=== PATIENT | male | born 1940 | race Asian ===

== ENCOUNTER 2021-08-11 11:34 | Emergency (ER) | payer MEDICARE, OTHER ==
[2021-08-11 11:45] VITALS: TEMP 98.2; BMI 25.8
[2021-08-11 13:37] LABS: BASO % 1.1 % (0-2.0); EOS % 3.4 % (0-4.5); HEMATOCRIT 44.7 % (35.4-49); HEMOGLOBIN 15.1 GM/dL (11.7-16.9); LYMPH % 23.9 % (8-40); MCH 29.7 pg (25.7-33.7); MCHC 33.8 g/dl (32.0-35.9); MEAN CELL VOLUME 87.9 fl (80-96); MEAN PLT VOLUME 7.9 fl (7.5-11.1); MONO % 9.1 % (3.8-10.2); NEUT % 62.5 % (42.8-82.8); PLATELET COUNT 224 10^3/uL (134-434); RBC 5.09 M/mm3 (4.00-5.60); RDW 14.4 % (11.9-15.9); WHITE BLOOD COUNT 5.8 K/mm3 (4.0-10.0)
[2021-08-11 14:03] LABS: CALCIUM 9.4 mg/dL (8.5-10.1)
[2021-08-11 14:04] LABS: ALBUMIN 3.7 g/dl (3.4-5.0); BLOOD UREA NITROGEN 14.6 mg/dL (7-18)
[2021-08-11 14:07] LABS: CREATININE 1.3 mg/dL (0.55-1.3)
[2021-08-11 14:09] LABS: TOT PROT 7.7 g/dl (6.4-8.2)
[2021-08-11 14:13] LABS: BILIRUBIN,TOTAL 0.4 mg/dL (0.2-1)
[2021-08-11 14:41] VITALS: BP 157/74; PULSE 65
== END 2021-08-11 14:39 | disposition home or self-care (01) ==
LOC: JER 11:34
DX: R79.89 Other specified abnormal findings of blood chemistry (principal)
CPT/HCPCS: 36415; 80053; 85025; 93005; 93010; 99284-25

== ENCOUNTER 2022-07-04 17:18 | Emergency (ER) | payer MEDICARE, OTHER ==
[2022-07-04] MEDS ORDERED: SODIUM CHLORIDE 0.9% 500 ML INFUS.BAG IV ONE (17:56)
[2022-07-04 18:17] VITALS: BP 149/74; PULSE 92; RESP 18; TEMP 98; BMI 26.6
[2022-07-04 19:58] LABS: HEMATOCRIT 44.2 % (35.4-49); HEMOGLOBIN 14.6 GM/dL (11.7-16.9); MCH 29.5 pg (25.7-33.7); MCHC 33.1 g/dl (32.0-35.9); MEAN CELL VOLUME 89.3 fl (80-96); MEAN PLT VOLUME 9.5 fl (7.5-11.1); PLATELET COUNT 161 10^3/uL (134-434); RBC 4.95 M/mm3 (4.00-5.60); RDW 13.8 % (11.9-15.9)
[2022-07-04 20:05] LABS: INR 0.97 (0.83-1.09); PROTHROMBIN TIME (PATIENT) 11.1 SEC (9.7-13.0)
[2022-07-04 20:08] LABS: ACTIVATED PTT 18.6 SECONDS (25.2-36.5)
[2022-07-04 20:12] LABS: ALBUMIN 3.8 g/dl (3.4-5.0); BLOOD UREA NITROGEN 18.4 mg/dL (7-18); WHITE BLOOD COUNT 10.4 K/mm3 (4.0-10.0)
[2022-07-04 20:15] LABS: CREATININE 1.5 mg/dL (0.55-1.3)
[2022-07-04 20:17] LABS: BILIRUBIN,TOTAL 0.4 mg/dL (0.2-1)
[2022-07-04 22:09] LABS: ANISOCYTOSIS 1+; MACROCYTOSIS 0; PLATELET ESTIMATE NORMAL
[2022-07-04 22:41] LABS: CALCIUM 8.3 mg/dL (8.5-10.1)
[2022-07-04 22:42] LABS: BLOOD UREA NITROGEN 16.9 mg/dL (7-18)
[2022-07-04 22:45] LABS: CREATININE 1.4 mg/dL (0.55-1.3)
== END 2022-07-05 00:20 | disposition home or self-care (01) ==
LOC: JER 17:18
DX: R42 Dizziness and giddiness (principal); W19.XXXA Unspecified fall, initial encounter
CPT/HCPCS: 0241U-QW; 36415; 70450-TC; 71045-TC-FY; 80048; 80053; 84484; 85025; 85610; 85730; 93005; 93010; 99285-25